=== PATIENT | female | born 1945 | race Caucasian/White ===

== ENCOUNTER 2017-05-24 17:16 | Emergency (ER) | payer MEDICARE ==
[~2017-05-24] VITALS: Ht 172.7 cm; Wt 61.2 kg
[2017-05-24] MEDS ORDERED: NS(*) 0.9% 1000 ML BAG 1,000 ML IV ONE ×2 (17:24→20:10)
[2017-05-24] MEDS ORDERED: ONDANSETRON 4 MG/2 ML VIAL IVP ONE (17:25)
[2017-05-24] MEDS ORDERED: NOREPINE BITAR* 4 MG/4 ML AMP 8 MG in D5W(*) 500 ML BAG 492 ML IV SCH (17:35)
--- NOTE | 2017-05-24 17:42 | EKG ---
FACILITY: [facility] PATIENT NAME: GEETHA HAWTHORNE : [id number] MR: [id number] V: [id number] EXAM DATE: ORDERING PHYSICIAN: SANGEETA KANG TECHNOLOGIST: TANO [place] Reason : LOW BP Blood Pressure : / mmHG Vent. Rate : 090 BPM Atrial Rate : 090 BPM P-R Int : 180 ms QRS Dur : 130 ms QT Int : 386 ms P-R-T Axes : 021 082 -16 degrees QTc Int : 472 ms Normal sinus rhythm Right bundle branch block Abnormal ECG No previous ECGs available Confirmed by MONICA HINOJOSA ([id number]) on 05/24/2017 7:34:47 PM Referred By: PEARL Confirmed By:MONICA HINOJOSA
--- NOTE | 2017-05-24 17:43 | ER Report ---
History and Physical Time Seen By MD: 17:41 Hx. of Stated Complaint: Pt brought via ems from [facility] for low BP. HPI/ROS Urine mass which she's refused treatment for walked [facility] today had vomited some bright red fluid they noted she had a blood pressure of 40 over not being resuscitated her with a total of 4 L of normal saline did a chest x-ray they said was read as negative and brought her here by ambulance Allergies: Coded Allergies: No Known Drug Allergies (Unverified , 05/24/17) Home Meds Reported Medications Lisinopril (LISINOPRIL) 10 Mg Tablet, 10 MG PO QDAY, TAB 05/24/17 Furosemide (FUROSEMIDE) 40 Mg Tablet, 0.5 TAB PO QDAY, TAB 05/24/17 Carvedilol (CARVEDILOL) 6.25 Mg Tab, 6.25 MG PO BID, TAB 05/24/17 Past Medical/Surgical History History of uterine mass, ascites, and cardiomyopathy, congestive heart failure, edema, essential hypertension, mitral regurgitation, pericardial effusion, pleural effusion, former smoker Reviewed Nurses Notes: Yes Hx Smoking: Yes Smoking Status: Former Smoker Exposure to Second Hand Smoke?: No Hx Substance Use Disorder: No Hx Alcohol Use: No Family History of: Other Constitutional Vital Sign - Last 24 Hours 05/24/17 05/24/17 05/24/17 05/24/17 17:20 17:26 17:30 17:31 Temp 97.5 Pulse 89 90 Resp 28 20 B/P (MAP) 81/43 81/43 (56) 81/42 (55) Pulse Ox 72 96 O2 Delivery Room Air 05/24/17 05/24/17 05/24/17 05/24/17 17:37 17:46 17:47 18:00 Pulse 90 Resp 4 B/P (MAP) 70/43 (52) 77/40 (52) Pulse Ox 93 O2 Flow Rate 4.0 05/24/17 05/24/17 05/24/17 05/24/17 18:01 18:05 18:10 18:15 Pulse 88 Resp 8 B/P (MAP) 90/72 (78) 94/44 (61) 93/35 (54) Pulse Ox 96 05/24/17 05/24/17 05/24/17 05/24/17 18:16 18:20 18:25 18:30 B/P (MAP) 94/40 (58) 72/56 (61) 90/42 (58) Pulse Ox 95 05/24/17 05/24/17 05/24/17 05/24/17 18:31 18:35 18:40 18:45 Pulse 73 Resp 24 B/P (MAP) 93/43 (60) 93/38 (56) 89/39 (56) Pulse Ox 97 05/24/17 05/24/17 05/24/17 05/24/17 18:46 18:50 18:55 19:00 Pulse 85 Resp 14 B/P (MAP) 95/38 (57) 95/41 (59) 93/29 (50) Pulse Ox 99 05/24/17 19:01 Resp 18 Pulse Ox 98 Intake and Output 05/24/17 05/24/17 05/25/17 15:00 23:00 07:00 Intake Total 2107 ml Output Total 0 ml Balance 2107 ml Physical Exam Patient is a 71-year-old female alert anxious moderate distress HEENT head is normocephalic atraumatic tympanic membranes are non-reddened throat is non- reddened neck is supple no JVD heart rate is regular she does havea murmur lungs are decreased bilateral bases abdomen is distended hypoactive bowel sounds moves all extremities Medical Decision Making Data Points Result Diagram: 05/24/17193905/24/17 1738 Laboratory Hematology Test 05/24/17 00:00 05/24/17 17:38 05/24/17 19:27 05/24/17 19:40 B-Type Natriuretic Peptide 168 pg/ml (0-100) Neutrophils % (Manual) 75 % (39.4-72.5) Band Neutrophils % 5 % Lymphocytes % (Manual) 1 % (17.6-49.6) Monocytes % (Manual) 17 % (4.1-12.4) Eosinophils % (Manual) 0 % (0.4-6.7) Basophils % (Manual) 0 % (0.3-1.4) Metamyelocytes % 2 % Hypochromasia 3+ Anisocytosis 2+ Microcytosis 2+ Sukhwinder Cells 1+ Prothrombin Time 20.4 seconds (12.0-14.4) Prothromb Time International Ratio 1.71 Activated Partial Thromboplast Time 32 seconds (23-35) Sodium Level 131 mmol/L (137-145) Potassium Level 5.7 mmol/L (3.5-5.0) Chloride Level 94 mmol/L (98-107) Carbon Dioxide Level 22 mmol/L (22-31) Blood Urea Nitrogen 92 mg/dl (7-18) Creatinine 5.50 mg/dl (0.52-1.04) Glomerular Filtration Rate Calc 7.7 Random Glucose 95 mg/dl (75-110) Lactate 3.1 mmol/L (0.7-2.1) Calcium Level 9.0 mg/dl (8.4-10.2) Magnesium Level 2.1 mg/dl (1.7-2.2) Total Bilirubin 1.4 mg/dl (0.2-1.3) Aspartate Amino Transf (AST/SGOT) 23 U/L (0-35) Alanine Aminotransferase (ALT/SGPT) 21 U/L (0-56) Alkaline Phosphatase 129 U/L (0-126) Troponin I < 0.012 ng/ml Total Protein 5.9 gm/dl (6.3-8.2) Albumin 2.5 g/dl (3.5-5.0) Amylase Level < 30 U/L (0-110) Lipase < 10 U/L (23-300) Urine Color Alysha Urine Clarity Turbid Urine pH 5.0 pH (4.8-9.5) Urine Specific [place] 1.019 Urine Protein 100 mg/dL (NEGATIVE) Urine Glucose (UA) Negative mg/dL (NEGATIVE) Urine Ketones Trace mg/dL (NEGATIVE) Urine Blood Small (NEGATIVE) Urine Nitrite Negative (NEGATIVE) Urine Bilirubin Negative (NEGATIVE) Urine Urobilinogen Negative mg/dL (0.2-1.9) Urine Leukocyte Esterase Moderate (NEGATIVE) Urine RBC None /HPF (0-2/HPF) Urine WBC 776 /HPF (0-5/HPF) Urine WBC Clumps Many /HPF Urine Squamous Epithelial Cells Many /LPF (NONE-FEW) Urine Renal Epithelial Cells Many /LPF (NONE-FEW) Urine Bacteria Negative /HPF (NONE-FEW) Urine Hyaline Casts Many /LPF (NONE-FEW) Urine Mucus Few /HPF (NONE-FEW) Red Blood Count 6.06 M/uL (4.17-5.56) Mean Corpuscular Volume 63.9 fL (80.0-96.0) Mean Corpuscular Hemoglobin 19.7 pg (26.0-33.0) Mean Corpuscular Hemoglobin Concent 30.8 g/dL (32.0-36.0) Red Cell Distribution Width 21.8 % (11.5-14.5) Mean Platelet Volume 8.7 fL (7.2-11.1) Neutrophils (%) (Auto) 93.1 % (39.4-72.5) Lymphocytes (%) (Auto) 1.7 % (17.6-49.6) Monocytes (%) (Auto) 3.8 % (4.1-12.4) Eosinophils (%) (Auto) 1.3 % (0.4-6.7) Basophils (%) (Auto) 0.1 % (0.3-1.4) Nucleated RBC Relative Count (auto) 0.0 /100WBC Neutrophils # (Auto) 33.1 K/uL (2.0-7.4) Lymphocytes # (Auto) 0.6 K/uL (1.3-3.6) Monocytes # (Auto) 1.3 K/uL (0.3-1.0) Eosinophils # (Auto) 0.5 K/uL (0.0-0.5) Basophils # (Auto) 0.0 K/uL (0.0-0.1) Nucleated RBC Absolute Count (auto) 0.00 K/uL Peripheral Blood Smear Yes Y/N Chemistry Test 05/24/17 00:00 05/24/17 17:38 05/24/17 19:27 05/24/17 19:40 B-Type Natriuretic Peptide 168 pg/ml (0-100) Neutrophils % (Manual) 75 % (39.4-72.5) Band Neutrophils % 5 % Lymphocytes % (Manual) 1 % (17.6-49.6) Monocytes % (Manual) 17 % (4.1-12.4) Eosinophils % (Manual) 0 % (0.4-6.7) Basophils % (Manual) 0 % (0.3-1.4) Metamyelocytes % 2 % Hypochromasia 3+ Anisocytosis 2+ Microcytosis 2+ Sukhwinder Cells 1+ Prothrombin Time 20.4 seconds (12.0-14.4) Prothromb Time International Ratio 1.71 Activated Partial Thromboplast Time 32 seconds (23-35) Glomerular Filtration Rate Calc 7.7 Lactate 3.1 mmol/L (0.7-2.1) Calcium Level 9.0 mg/dl (8.4-10.2) Magnesium Level 2.1 mg/dl (1.7-2.2) Total Bilirubin 1.4 mg/dl (0.2-1.3) Aspartate Amino Transf (AST/SGOT) 23 U/L (0-35) Alanine Aminotransferase (ALT/SGPT) 21 U/L (0-56) Alkaline Phosphatase 129 U/L (0-126) Troponin I < 0.012 ng/ml Total Protein 5.9 gm/dl (6.3-8.2) Albumin 2.5 g/dl (3.5-5.0) Amylase Level < 30 U/L (0-110) Lipase < 10 U/L (23-300) Urine Color Alysha Urine Clarity Turbid Urine pH 5.0 pH (4.8-9.5) Urine Specific [place] 1.019 Urine Protein 100 mg/dL (NEGATIVE) Urine Glucose (UA) Negative mg/dL (NEGATIVE) Urine Ketones Trace mg/dL (NEGATIVE) Urine Blood Small (NEGATIVE) Urine Nitrite Negative (NEGATIVE) Urine Bilirubin Negative (NEGATIVE) Urine Urobilinogen Negative mg/dL (0.2-1.9) Urine Leukocyte Esterase Moderate (NEGATIVE) Urine RBC None /HPF (0-2/HPF) Urine WBC 776 /HPF (0-5/HPF) Urine WBC Clumps Many /HPF Urine Squamous Epithelial Cells Many /LPF (NONE-FEW) Urine Renal Epithelial Cells Many /LPF (NONE-FEW) Urine Bacteria Negative /HPF (NONE-FEW) Urine Hyaline Casts Many /LPF (NONE-FEW) Urine Mucus Few /HPF (NONE-FEW) White Blood Count 35.5 k/uL (4.5-11.0) Red Blood Count 6.06 M/uL (4.17-5.56) Hemoglobin 11.9 g/dL (12.0-16.0) Hematocrit 38.7 % (34.0-47.0) Mean Corpuscular Volume 63.9 fL (80.0-96.0) Mean Corpuscular Hemoglobin 19.7 pg (26.0-33.0) Mean Corpuscular Hemoglobin Concent 30.8 g/dL (32.0-36.0) Red Cell Distribution Width 21.8 % (11.5-14.5) Platelet Count 1252 K/uL (150-450) Mean Platelet Volume 8.7 fL (7.2-11.1) Neutrophils (%) (Auto) 93.1 % (39.4-72.5) Lymphocytes (%) (Auto) 1.7 % (17.6-49.6) Monocytes (%) (Auto) 3.8 % (4.1-12.4) Eosinophils (%) (Auto) 1.3 % (0.4-6.7) Basophils (%) (Auto) 0.1 % (0.3-1.4) Nucleated RBC Relative Count (auto) 0.0 /100WBC Neutrophils # (Auto) 33.1 K/uL (2.0-7.4) Lymphocytes # (Auto) 0.6 K/uL (1.3-3.6) Monocytes # (Auto) 1.3 K/uL (0.3-1.0) Eosinophils # (Auto) 0.5 K/uL (0.0-0.5) Basophils # (Auto) 0.0 K/uL (0.0-0.1) Nucleated RBC Absolute Count (auto) 0.00 K/uL Peripheral Blood Smear Yes Y/N Coagulation Test 05/24/17 17:38 Prothrombin Time 20.4 seconds Prothromb Time International Ratio 1.71 Activated Partial Thromboplast Time 32 seconds Urinalysis Test 05/24/17 19:27 Urine Color Alysha Urine Clarity Turbid Urine pH 5.0 pH (4.8-9.5) Urine Specific [place] 1.019 Urine Protein 100 mg/dL (NEGATIVE) Urine Glucose (UA) Negative mg/dL (NEGATIVE) Urine Ketones Trace mg/dL (NEGATIVE) Urine Blood Small (NEGATIVE) Urine Nitrite Negative (NEGATIVE) Urine Bilirubin Negative (NEGATIVE) Urine Urobilinogen Negative mg/dL (0.2-1.9) Urine Leukocyte Esterase Moderate (NEGATIVE) Urine RBC None /HPF (0-2/HPF) Urine WBC 776 /HPF (0-5/HPF) Urine WBC Clumps Many /HPF Urine Squamous Epithelial Cells Many /LPF (NONE-FEW) Urine Renal Epithelial Cells Many /LPF (NONE-FEW) Urine Bacteria Negative /HPF (NONE-FEW) Urine Hyaline Casts Many /LPF (NONE-FEW) Urine Mucus Few /HPF (NONE-FEW) EKG/Imaging EKG Interpretation EKG at 1730 sinus with a right bundle branch block ventricular rate is 90 Imaging FACILITY: [facility] PATIENT NAME: Chelsie Benavides : 1945 MR: [id number] V: [id number] EXAM DATE: ORDERING PHYSICIAN: SANGEETA KANG TECHNOLOGIST: Location: [facility] Patient: Chelsie Benavides : 1945 Visit/Account:[id number] Date of Sevice: 05/24/2017 CHEST SINGLE AP Indication: Vomiting blood.. Comparison: None available Findings: Cardiomediastinal silhouette and pulmonary vessels within normal limits for the technique and rotation. Left lower lobe does show patchy hazy opacity. The remaining lung lux are clear. Chronic interstitial changes are present. No pneumothorax or pleural effusion. No nodule. Upper abdomen is unremarkable. No acute bony abnormality. IMPRESSION: 1. Patchy hazy opacity seen in left lower lobe could be secondary to atelectasis or infiltrate. Follow-up PA and lateral view chest can evaluate for clearing or other etiologies. Report Dictated By: Agustin Aguirre at 05/24/2017 7:31 PM Report E-Signed By: Agustin Aguirre at 05/24/2017 7:32 PM WSN:[id number]: [facility] PATIENT NAME: Chelsie Benavides : 1945 MR: [id number] V: [id number] EXAM DATE: [id number] ORDERING PHYSICIAN: SANGEETA KANG TECHNOLOGIST: Location: [facility] Patient: Chelsie Benavides : 1945 Visit/Account:[id number] Date of Sevice: 05/24/2017 EXAMINATION: CT abdomen and pelvis without IV contrast HISTORY: Vomiting blood. TECHNIQUE: Axial CT images of the abdomen and pelvis were obtained without IV contrast, with coronal and sagittal 2D reconstructed images. One of the following dose optimization techniques was utilized in the performance of this exam: Automated exposure control; adjustment of the mA and/ or kV according to the patient's size; or use of an iterative reconstruction technique. Specific details can be referenced in the facility's radiology CT exam operational policy. COMPARISON: 02/10/2017. FINDINGS: Evaluation of the solid and viscus parenchymal organs is limited without the benefit of IV contrast. Liver: There is scattered portal venous gas along the periphery of the left hepatic lobe. Normal hepatic size and morphology. Gallbladder and bile ducts: Cholelithiasis, with a densely calcified 1.7 cm gallstone in the gallbladder lumen. No appreciable gallbladder wall thickening. No bile duct dilatation. Spleen: Negative. Pancreas: Negative. Adrenal glands: Negative. Kidneys: Small nonobstructing left renal calculus measuring 2 mm. No hydronephrosis. Bowel and peritoneum: There is dilatation of multiple small bowel loops in the abdomen and pelvis, measuring up to 4.3 cm, with air-fluid levels. Despite the absence of IV contrast there appears to be significant wall thickening and irregularity of dilated small bowel loops in the left abdomen and pelvis with diffuse mesenteric edema. There is fecalized intraluminal contents within several of these thick-walled small bowel segments compatible with stasis. There is likely pneumatosis involving several of the small bowel segments, accounting for the portal venous gas. Appearance is suspicious for small bowel ischemia. The colon is significantly decompressed. There are some decompressed small bowel loops present in the deep pelvis. Appearance overall suggests likely small bowel obstruction. Moderate amount of free fluid throughout the abdomen and pelvis. Fluid is higher attenuation than simple fluid and may be complex or hemorrhagic. No definite free intraperitoneal air. Pelvic structures: Again noted is a poorly defined malignant appearing soft tissue mass in the central pelvis likely of gynecologic origin and extending along both adnexal regions and abutting the rectum. This is better defined on the prior contrast-enhanced study but measures approximately 7.0 x 9.2 cm, previously 7.6 x 10.1 cm. The urinary bladder is decompressed, with a Medley catheter in place. Lymph node assessment: Mildly enlarged retroperitoneal lymph nodes appear grossly stable by noncontrast imaging. Vessels: Normal caliber abdominal aorta. Mild vascular calcifications. Musculoskeletal: Negative. Body wall: Small umbilical hernia containing fat and ascites fluid. No herniated bowel loops. Lung bases: There is bibasilar atelectasis or consolidation. IMPRESSION: 1. There are multiple dilated and thick-walled small bowel loops in the abdomen and pelvis with diffuse mesenteric edema. There is portal venous gas in the liver with suspected pneumatosis along several irregular small bowel loops in the left abdomen. CT appearance is suspicious for small bowel ischemia. 2. Suspected underlying small bowel obstruction. A discrete transition is not well-defined on this noncontrast exam. Proximal small bowel loops however are significantly distended, with decompression of distal small bowel loops in the pelvis and of the colon. 3. Moderate amount of free fluid in the abdomen and pelvis, of higher density than simple fluid, possibly complex or hemorrhagic in nature. 4. Malignant soft tissue mass in the central pe vis is not well defined on this noncontrast exam but may measure slightly smaller in size than on the prior study. 5. Bibasilar consolidation in the lower lungs.Findings were discussed with SANGEETA KANG at 05/24/2017 7:55 PM. Report Dictated By: Eric Bellamy MD at 05/24/2017 7:39 PM Report E-Signed By: Eric Bellamy MD at 05/24/2017 7:57 PM WSN:[id number] ED Course/Re-evaluation Clinical Indication for ER IV: Hydration ED Course Patient received 4 L of normal saline during transport from [facility] initially had a blood pressure of 40 over nothing normal saline has been run in our facility at 250 mL an hour, Levaquin that has been honking at 8 Gino's maintaining current pressure 120/78 Zosyn 3.375 and Levaquin 500 mg IV piggyback for antibiotic coverage. Re-evaluation I [place] [facility] to [place] transfer center gets this bad acceptance we'll transfer her via ground note that ear transport is not available at this time and we have delayed transport for patient to call her friends to decide if she is willing to accept further care with friends guidance she has agreed to accept care will be transported to [facility] for this Procedure refuses placement of ngt Decision to Disposition Date: May 24, 2017 Decision to Disposition Time: 20:22 Critical Care Time 3 hours [place] [facility] Latest Vital Signs Vital Signs Date Time Temp Pulse Resp B/P (MAP) Pulse Ox O2 Delivery O2 Flow Rate FiO2 05/24/17 19:01 18 98 05/24/17 19:00 93/29 (50) 05/24/17 18:46 85 05/24/17 17:37 4.0 05/24/17 17:20 97.5 Room Air Impression: Primary Impression: Ischemic bowel syndrome Additional Impressions: Acute renal failure Pneumonia Sepsis UTI (urinary tract infection) Hypotension Condition: Condition Unchanged Disposition: XFER TO [facility] Exam Respiratory Exam: No Rales, No Crackles, Decreased Breath Sounds Cardiovascular Exam: S1, S2 SBP Drop > 40 mmHg from Baseli: Yes Capillary Refill: Greater than 2 Seconds Peripheral Pulse: Strong Pulse Location: Radial Skin Exam: Flushed Date Exam Occurred: May 24, 2017 Time Exam Occurred: 17:30 Passive Leg Raise/Fluid Bolus: Fluid Responsive Date Bedisde Monitoring Occurr: May 24, 2017 Time Bedside Monitoring Occurr: 17:30 Sepsis Onset Time: 08:00 Problem Qualifiers SANGEETA KANG May 24, 2017 17:43
[2017-05-24 18:24] LABS: INR 1.71; PLATELET COUNT, AUTOMATED 1418 K/uL (150-450)
[2017-05-24] MEDS ORDERED: NS 0.9% 20 ML SDV 0 ML ONE (18:33)
[2017-05-24] MEDS ORDERED: IOPAMIDOL 76% 75 ML INFUS BTL 0 ML ONE (18:33)
--- NOTE | 2017-05-24 19:36 | RADIOLOGY IMAGING REPORT ---
FACILITY: [facility] PATIENT NAME: Chelsie Benavides : 1945 MR: [id number] V: [id number] EXAM DATE: ORDERING PHYSICIAN: SANGEETA KANG TECHNOLOGIST: Location: [facility] Patient: Chelsie Benavides : 1945 Visit/Account:[id number] Date of Sevice: 05/24/2017 CHEST SINGLE AP Indication: Vomiting blood.. Comparison: None available Findings: Cardiomediastinal silhouette and pulmonary vessels within normal limits for the technique and rotatio n. Left lower lobe does show patchy hazy opacity. The remaining lung lux are clear. Chronic interstit ial changes are present. No pneumothorax or pleural effusion. No nodule. Upper abdomen is unremarkable. No acute bony abnormality. IMPRESSION: 1. Patchy hazy opacity seen in left lower lobe could be secondary to atelectasis or infiltrate. Follo w-up PA and lateral view chest can evaluate for clearing or other etiologies. Report Dictated By: Agustin Aguirre at 05/24/2017 7:31 PM Report E-Signed By: Agustin Aguirre at 05/24/2017 7:32 PM WSN:[id number]
[2017-05-24] MEDS ORDERED: LEVOFLOXACIN/D5W*500 MG/100 ML 100 ML IVPB ONE (20:00)
[2017-05-24] MEDS ORDERED: PIPERACILLIN/TAZO*3.375GM VIAL 3.375 GM in NS(*) 0.9% 100 ML ADDVANT BAG 100 ML IVPB ONE (20:00)
--- NOTE | 2017-05-24 20:01 | RADIOLOGY IMAGING REPORT ---
FACILITY: [facility] PATIENT NAME: Chelsie Benavides : 1945 MR: [id number] V: [id number] EXAM DATE: ORDERING PHYSICIAN: SANGEETA KANG TECHNOLOGIST: Location: [facility] Patient: Chelsie Benavides : 1945 Visit/Account:[id number] Date of Sevice: 05/24/2017 EXAMINATION: CT abdomen and pelvis without IV contrast HISTORY: Vomiting blood. TECHNIQUE: Axial CT images of the abdomen and pelvis were obtained without IV contrast, with benavidez l and sagittal 2D reconstructed images. One of the following dose optimization techniques was utilized in the performance of this exam: Autom ated exposure control; adjustment of the mA and/or kV according to the patient's size; or use of an i terative reconstruction technique. Specific details can be referenced in the facility's radiology C T exam operational policy. COMPARISON: 02/10/2017. FINDINGS: Evaluation of the solid and viscus parenchymal organs is limited without the benefit of IV contrast. Liver: There is scattered portal venous gas along the periphery of the left hepatic lobe. Normal hep atic size and morphology. Gallbladder and bile ducts: Cholelithiasis, with a densely calcified 1.7 cm gallstone in the gallbla dder lumen. No appreciable gallbladder wall thickening. No bile duct dilatation. Spleen: Negative. Pancreas: Negative. Adrenal glands: Negative. Kidneys: Small nonobstructing left renal calculus measuring 2 mm. No hydronephrosis. Bowel and peritoneum: There is dilatation of multiple small bowel loops in the abdomen and pelvis, m easuring up to 4.3 cm, with air-fluid levels. Despite the absence of IV contrast there appears to be significant wall thickening and irregularity of dilated small bowel loops in the left abdomen and pel vis with diffuse mesenteric edema. There is fecalized intraluminal contents within several of these t hick-walled small bowel segments compatible with stasis. There is likely pneumatosis involving severa l of the small bowel segments, accounting for the portal venous gas. Appearance is suspicious for sma ll bowel ischemia. The colon is significantly decompressed. There are some decompressed small bowel loops present in the deep pelvis. Appearance overall suggests likely small bowel obstruction. Moderate amount of free flu id throughout the abdomen and pelvis. Fluid is higher attenuation than simple fluid and may be comple x or hemorrhagic. No definite free intraperitoneal air. Pelvic structures: Again noted is a poorly defined malignant appearing soft tissue mass in the ce ntral pelvis likely of gynecologic origin and extending along both adnexal regions and abutting the r ectum. This is better defined on the prior contrast-enhanced study but measures approximately 7.0 x 9 .2 cm, previously 7.6 x 10.1 cm. The urinary bladder is decompressed, with a Medley catheter in place. Lymph node assessment: Mildly enlarged retroperitoneal lymph nodes appear grossly stable by noncontr ast imaging. Vessels: Normal caliber abdominal aorta. Mild vascular calcifications. Musculoskeletal: Negative. Body wall: Small umbilical hernia containing fat and ascites fluid. No herniated bowel loops. Lung bases: There is bibasilar atelectasis or consolidation. IMPRESSION: 1. There are multiple dilated and thick-walled small bowel loops in the abdomen and pelvis with diffu se mesenteric edema. There is portal venous gas in the liver with suspected pneumatosis along several irregular small bowel loops in the left abdomen. CT appearance is suspicious for small bowel ischemi a. 2. Suspected underlying small bowel obstruction. A discrete transition is not well-defined on this no ncontrast exam. Proximal small bowel loops however are significantly distended, with decompression of distal small bowel loops in the pelvis and of the colon. 3. Moderate amount of free fluid in the abdomen and pelvis, of higher density than simple fluid, poss ibly complex or hemorrhagic in nature. 4. Malignant soft tissue mass in the central pe vis is not well defined on this noncontrast exam but may measure slightly smaller in size than on the prior study. 5. Bibasilar consolidation in the lower lungs.Findings were discussed with SANGEETA KANG at 05/24/2017 7:55 PM. Report Dictated By: Eric Bellamy MD at 05/24/2017 7:39 PM Report E-Signed By: Eric Bellamy MD at 05/24/2017 7:57 PM WSN:[id number]
[2017-05-24 20:09] LABS: PLATELET COUNT, AUTOMATED 1252 K/uL (150-450)
[2017-05-24] MEDS ORDERED: CAR6.25 PO (20:14)
[2017-05-24] MEDS ORDERED: LISI-362 PO (20:15)
[2017-05-24] MEDS ORDERED: FURO-47 PO (20:15)
[2017-05-24] MEDS ORDERED: HYDROCORTISONE 100 MG/2 ML IVP ONE (20:25)
[2017-05-24] MEDS ORDERED: LORazepam 2 MG/ML VIAL IVP ONE (20:50)
[2017-05-24 21:40] VITALS: BP 81/35
== END 2017-05-24 22:00 | disposition short-term general hospital (02) ==
LOC: ER 17:23
DX: K55.9 Vascular disorder of intestine, unspecified (principal); N17.9 Acute kidney failure, unspecified; J18.9 Pneumonia, unspecified organism; A41.9 Sepsis, unspecified organism; I95.9 Hypotension, unspecified; N39.0 Urinary tract infection, site not specified; N85.9 Noninflammatory disorder of uterus, unspecified; I50.9 Heart failure, unspecified
CPT/HCPCS: 36415; 71045; 74176; 81001; 82150; 83605; 83690; 83735; 83880; 84484; 85025; 85610; 85730; 86850; 86900; 86901; 86920; 87040; 93005; 96365; 96366; 96375; 99291; 99292; J1720; J1956; J2060; J2405; J2543; J7030; J7050; J7060; P9016; 82040; 82247; 82310; 82374; 82435; 82565; 82947; 84075; 84132; 84155; 84295; 84450; 84460; 84520; 99285; Q9967

== ENCOUNTER → 2017-05-24 | Outpatient (CLI) | payer MEDICARE ==
[~2017-05-24] MED LIST: CAR6.25 PO; FURO-47 PO; LISI-362 PO
== END ==
LOC: AMB 21:24
PROVIDERS: ATTEND Nurse Practitioner
DX: N19 Unspecified kidney failure (principal); A41.9 Sepsis, unspecified organism; R65.21 Severe sepsis with septic shock; K56.609 Unspecified intestinal obstruction, unspecified as to partial versus complete obstruction
CPT/HCPCS: A0425; A0434